=== PATIENT | male | born 1985 | race Caucasian/White ===

== ENCOUNTER 2025-01-25 05:33 | Day surgery (SDC) | payer OTHER ==
[2025-01-23 10:44] VITALS: BMI 26.3
[2025-01-25] MEDS: LIDOCAINE HCL 1%, 10 MG/ML (20ML VIAL) NR ONE
[2025-01-25] MEDS ORDERED: LIDOCAINE 1%/EPI 1:100000 (20 ML MULTI DOSE VIAL) ONE (12:51)
[2025-01-25] MEDS ORDERED: LIDOCAINE HCL/PF 2% SDV 5ML VIAL ONE (13:15)
[2025-01-25] MEDS ORDERED: ONDANSETRON 4 MG/2 ML VIAL ONE (13:15)
[2025-01-25] MEDS ORDERED: KETOROLAC TROMETHAMINE 30 MG/1 ML VIAL ONE (13:15)
[2025-01-25] MEDS ORDERED: DEXAMETHASONE SOD PHOSPHATE 4 MG/1 ML VIAL ONE (13:15)
[2025-01-25] MEDS ORDERED: ceFAZolin SODIUM 1 GM VIAL ONE (13:16)
[2025-01-25] MEDS ORDERED: SUCCINYLCHOLINE CHLORIDE 200 MG/10 ML SYRINGE ONE (13:19)
[2025-01-25] MEDS ORDERED: PROPOFOL 40 ML ONE (13:20)
[2025-01-25] MEDS ORDERED: MIDAZOLAM HCL 2 MG/2 ML SINGLE DOSE VIAL ONE (13:21)
[2025-01-25] MEDS ORDERED: SODIUM CHLORIDE 0.9% P/F 10 ML VIAL IJ ONE (13:21)
[2025-01-25] MEDS: ceFAZolin SODIUM 1 GM VIAL IVPB ONE ×2 (13:30)
[2025-01-25] MEDS ORDERED: ACETAMINOPHEN INJECTION 100 ML ONE (13:41)
[2025-01-25] MEDS: BUPIVACAINE HCL/PF 0.25% (2.5MG/ML) 10 ML VIAL IJ ONE ×2 (14:11)
[2025-01-25] MEDS ORDERED: oxyCODONE HCL 5 MG TABLET PO PRN (14:27)
[2025-01-25] MEDS ORDERED: ONDANSETRON 4 MG/2 ML VIAL IVPUSH PRN (14:27)
[2025-01-25] MEDS ORDERED: LACTATED RINGERS SOLUTION 1,000 ML IV SCH (14:30)
[2025-01-25 16:52] VITALS: BP 130/81; PULSE 77; RESP 18; TEMP 97.9
== END 2025-01-25 16:30 | disposition home or self-care (01) ==
LOC: JASU-SURG 05:33
PROVIDERS: ATTEND Urology
PROC: 0VTTXZZ Resection of Prepuce, External Approach (ICD-10-PCS; principal; 2025-01-25 14:30)
DX: N47.1 Phimosis (principal)
CPT/HCPCS: 88304-TC; 94760; J0131